=== PATIENT | male | born 1955 | race Caucasian/White ===

== ENCOUNTER 2016-10-17 20:10 | Emergency (ER) | payer OTHER ==
[~2016-10-17] VITALS: Ht 180.3 cm; Wt 80.0 kg
[2016-10-17 20:10] VITALS: TEMP 36.6; Ht 180.3 cm; Wt 80.0 kg
[2016-10-17] MEDS ORDERED: XYLOCAINE 1%/SOD BICARB 20 ML VIAL INFIL ONE (20:30)
[2016-10-17] MEDS ORDERED: CEFAZOLIN IV 2,000 MG in DEXTROSE 5% 50ML 50 ML IV STA (20:30)
[2016-10-17] MEDS ORDERED: DIPHTHERIA/TETANUS/PERTUSSIS 0.5 ML SYR/VIAL IM. ONE (20:30)
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
[2016-10-17] MEDS ORDERED: MELO15TA4 PO (21:24)
[2016-10-17] MEDS ORDERED: LISI40TA PO (21:24)
[2016-10-17] MEDS ORDERED: ALLO300T2 PO (21:24)
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
[2016-10-17] MEDS ORDERED: CEFAZOLIN SOD 1000MG/55 ML D5W IV ONE (21:53)
[2016-10-17] MEDS ORDERED: BUPIVACAINE 0.5 % 5 MG/1 ML MPF 30ML VIAL INFIL STA (22:36)
[2016-10-17] MEDS ORDERED: CEPH500C PO (22:49)
[2016-10-17] MEDS ORDERED: OXYC-57 PO (22:50)
[2016-10-17] MEDS ORDERED: PERCOCET HOME PACK PO ONE (23:00)
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
[2016-10-18 01:27] VITALS: BP 122/93; PULSE 94; O2SAT 97
== END 2016-10-18 01:29 | disposition home or self-care (01) ==
LOC: C.EDB 20:12
DX: S62.502B Fracture of unspecified phalanx of left thumb, initial encounter for open fracture (principal); S69.82XA Other specified injuries of left wrist, hand and finger(s), initial encounter; X58.XXXA Exposure to other specified factors, initial encounter; Z23 Encounter for immunization

== ENCOUNTER 2020-07-10 06:01 | Observation (INO) ==
--- NOTE | 2020-07-07 10:06 | Anesthesiology Consultation ---
Date of Service July 07, 2020 Assessment & Plan (1) Encounter for pre-operative examination: Chart Review Chart Review: Acceptable Risk for Surgery and Patient NOT seen in Pre Admission Testing Per nursing assessment- 6 beers daily Per nursing assessment 07/03/2020, patient denies any recent travel. No known Covid infection in the past 90 days. No known Covid positive contacts or Covid related symptoms. Covid test 07/05/2020 = negative. Seen by PCP 07/08/20= seen for preop clearance appt. Revised Cardiac Risk Index Score- Class 1 risk. No HERNANDEZ/SOB. No anticoagulation, insulin or signs of infection. "Cleared from primary care setting for surgery, patient optimally managed" History Surgery Operation Date: 07/10/20 07:30 Proposed Procedures p Robotic Assisted Laparoscopic Radical Retropubic Prostatectomy, Possible Open, Possible Pelvic Lymph - Armando Layne, DO s Robotic-Assisted LaparoscopicRigth Inguinal Hernia Repair, Possible Open - Cristian Nobles DO Height/Weight Height: 5 ft 8 in Weight: 72.575 kg Allergies Allergy/AdvReac Type Severity Reaction Status Date / Time aspirin AdvReac Unknown ? UNSURE Verified 07/08/20 13:42 REASON Medications Home Medications Medication Instructions Recorded Confirmed Last Taken allopurinol 300 mg tablet 300 mg PO QAM 05/21/20 07/08/20 Unknown betamethasone dipropionate 0.05 % 1 applic TOPICAL BID PRN 05/21/20 07/08/20 Unknown topical cream bicalutamide 50 mg tablet 50 mg PO DAILY 05/21/20 07/08/20 Unknown celecoxib 200 mg capsule 200 mg PO QAM 05/21/20 07/08/20 Unknown lisinopril 40 mg tablet 40 mg PO QAM 05/21/20 07/08/20 Unknown sildenafil 100 mg tablet 100 mg PO DAILY PRN 05/21/20 07/08/20 Unknown tamsulosin 0.4 mg capsule 0.4 mg PO QAM 05/21/20 07/08/20 Unknown Past Medical History Medical History (Updated 07/09/20 @ 14:29 by Terrie Bay PA-C) BPH (benign prostatic hyperplasia) Erectile dysfunction Finger amputation, 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 Person Greenwald [facility] History of ankle surgery ? SIDE History of cataract surgery RT/LEFT History of colonoscopy History of prostate biopsy History of tooth extraction Social History Smoking Status: Never smoker tobacco type: smokeless tobacco Do You Dip or Chew Tobacco: Yes (ADVISED) Hx Alcohol Use: Yes Alcohol type: beer alcohol intake frequency: 3 or more drinks per day Alcohol Intake Frequency Comment: 6 BEERS DAILY ? Hx Substance Use: No Testing Laboratory Results Laboratory Tests 07/05/20 07/05/20 10:05 10:05 WBC 5.77 Hgb 14.7 Hct 41.3 L Plt Count 162 Sodium 138 Potassium 4.7 Chloride 110 H Carbon Dioxide 25 BUN 15 Creatinine 0.96 Glucose 103 H 07/05/2020 = UA: Negative Electrocardiogram Date: 07/07/20 Findings: + NSR @ (80 bpm) Normal EKG. Chest X-Ray Date: 07/08/20 Findings: + NAD
[~2020-07-10 06:01] MED LIST: HEPARIN SOD 5,000 UNIT/0.5 ML VIAL SQ SCH; LACTATED RINGER'S 1,000 ML IV SCH; LR 15ML/HR IV SCH; ceFAZolin 2000MG 2,000 MG/15 ML SYR IV SCH
[2020-07-10] MEDS ORDERED: ONDANSETRON INJ 2 MG/ML 2 ML VIAL ONE (06:40)
[2020-07-10] MEDS ORDERED: ROCURONIUM BROMIDE 10 MG/ML 5 ML VIAL IV ONE ×6 (06:40→08:21)
[2020-07-10] MEDS ORDERED: fentaNYL citrate 100 MCG/2 ML VIAL ONE ×2 (06:40→08:22)
[2020-07-10] MEDS ORDERED: MIDAZOLAM HCL 1 MG/ML 2ML VIAL ONE (06:40)
[2020-07-10] MEDS ORDERED: LIDOCAINE HCL 2% 2 ML VIAL/AMP(20MG/ML) INFIL ONE (06:40)
[2020-07-10] MEDS ORDERED: PROPOFOL IV EMULSION 10 MG/ML 20 ML VIAL IV ONE (06:40)
[2020-07-10] MEDS ORDERED: ePHEDrine sulfate 50 MG/ML AMP IV PRN (06:51)
[2020-07-10] MEDS ORDERED: ATROPINE SULFATE 0.1 MG/ML 10ML SYR IV PRN (06:51)
[2020-07-10] MEDS ORDERED: fentaNYL citrate 100 MCG/2 ML VIAL IV PRN (06:51)
[2020-07-10] MEDS ORDERED: ONDANSETRON INJ 2 MG/ML 2 ML VIAL IV PRN ×2 (06:51→14:24)
--- NOTE | 2020-07-10 07:04 | History & Physical Bridge Note ---
Date of Service July 10, 2020 History & Physical Bridge Note I have examined the patient, reviewed the History & Physical and in the interval since the performance of the History & Physical I have noted the following changes of clinical significance: no changes noted
[2020-07-10] MEDS ORDERED: BUPIVACAINE 0.5 % 5 MG/1 ML MPF 30ML VIAL ONE (07:29)
[2020-07-10] MEDS ORDERED: NEOSTIGMINE METHYLSULFATE 5 MG/5 ML SYR ONE (09:02)
[2020-07-10] MEDS ORDERED: PHENYLEPHRINE 100MCG/ML 5ML SYR ONE (09:02)
[2020-07-10] MEDS ORDERED: GLYCOPYRROLATE 0.2 MG/ML VIAL ONE (09:02)
[2020-07-10] MEDS ORDERED: SURGICEL ABSORB HEMOSTAT 2IN X 14IN TOP ONE (09:02)
[2020-07-10] MEDS ORDERED: PHENYLEPHRINE HCL 10 MG/ML VIAL ONE (09:02)
[2020-07-10] MEDS ORDERED: DEXAMETHASONE SOD INJ 4 MG/ML VIAL ONE (10:20)
[2020-07-10] MEDS ORDERED: FLOSEAL HEMOSTATIC MATRIX 10ML TOP ONE (10:36)
--- NOTE | 2020-07-10 12:48 | Post Operative Brief Note ---
PG Immediate Post Op with CF Date of Surgery July 10, 2020 Pre & Post Diagnosis Operation Date: 07/10/20 07:30 Pre-Op Diagnosis: Prostate Cancer, Right Inguinal Hernia Post-Op Diagnosis: Prostate Cancer, Right Inguinal Hernia I identified the patient and participated in the time-out.: Yes Procedure Operation Date: 07/10/20 07:30 Actual Procedures s Robotic-Assisted Laparoscopic Right Inguinal Hernia Repair with Mesh - Cristian Nobles DO Surgeon Cristian Nobles DO Sanitation Manager Leona VENEGAS Estimated Blood Loss 5 Findings See Below Indirect inguinal hernia Specimens Specimen Description: Permanent Specimen A.) right pelvic lymph node - sent fresh B.) left pelvic lymph node - sent fresh C.) prostate Drains [place] Catheter Anesthesia Type General Complications none Disposition Disposition: Recovery Room
--- NOTE | 2020-07-10 13:13 | Operative Report ---
PG Post Operative Report Pre & Post Diagnosis Operation Date: 07/10/20 07:30 Pre-Op Diagnosis: Prostate Cancer, Right Inguinal Hernia Post-Op Diagnosis: Prostate Cancer, Right Inguinal Hernia I identified the patient and participated in the time-out.: Yes Procedure Operation Date: 07/10/20 07:30 Actual Procedures p Robotic Assisted Laparoscopic Radical Retropubic Prostatectomy, Pelvic Lymph Node Excision(Not Applicable) - Armando Layne DO s Robotic-Assisted Laparoscopic Right Inguinal Hernia Repair with Mesh - Cristian Nobles DO Surgeon Armando Layne, II, DO Car Ferrier Leona VENEGAS Estimated Blood Loss 75 Findings Consistent with Post-Op Diagnosis Right inguinal hernia. Specimens Prostate and Seminal Vesicle Left Pelvic Lymph Nodes Right Pelvic Lymph Nodes. Drains 18 Fr Lim catheter. Anesthesia Type General Complications none Disposition Disposition: Recovery Room Indications Patient with Prostate Cancer. Risk and benefits were discussed at length. Patient elected to undergo robotic assisted laparoscopic Radical Prostatectomy. Description of Procedure The patient was brought to the operative suite and placed under general endotracheal intubation anesthesia in the supine position. The patient was transferred to the dorsal lithotomy position. At this point, the patient prepped and draped in the usual sterile fashion and a timeout was completed. Preoperative antibiotics of Ancef 2 grams had been given. BASIL's and SCD's were placed on the patient's lower extremities. A catheter was placed using sterile technique. With the time out completed the patient was placed into Trendelenburg and the skin at the umbilicus was anesthetized. A small incision was made superior to the umbilicus. A Varess Needle was placed and confirmed to be in the abdominal cavity. Water drop test passed. The Abdominal cavity was insufflated to 15 mmHG. The camera port was then placed. A laparoscopic camera was placed into the port and the abdominal cavity inspected. No concerning features were noted. At this point, the skin was marked for port placement and 8mm working ports were placed. The skin was anesthetized down to fascia and an approx 1cm incision was made to place the 3 x 8mm ports. A 12mm and 5 mm acute care certified nursing assistant ports were also placed in similar fashion under direct visualization. The patient was transferred into steep Trendelenburg position and the legs lowered. The robot was positioned and docked. The camera was placed and all trocars were positioned under direct visualization. THEO Be was integral in port placement, camera utilization, and docking procedure. She remained in sterile attire and then proceeded to assist the remainder of the case. At this point, I transitioned to the robotic console. At this point, the sigmoid colon was mobilized superiorly and the pelvis assessed. Adhesions were freed to allow mobilization. The peritoneum in the midline was opened between rectum and bladder and the vas deferens and seminal vesicles exposed. These were dissected with blunt technique. The vas was clipped and cut and mobilized. Cautery was used to assist dissection avoiding the tissue posteriorly near the rectum. The tissues lateral to the seminal vesicles were clipped with a hemolock and all bleeding controlled. This was taken as inferior as possible from this position. The medial umbilical ligaments were then identified and the peritoneum directly lateral on the right followed by the left was opened. The tissues were bluntly dissected to free the bladder's lateral attachments. This was taken down to the pubic bone and exposed the endopelvic fascia bilaterally. The medial ligaments were cut and the bladder dropped. The tissues was dissected anterior to the prostate. The endopelvic fascia on each side was then opened and the lateral edges of the prostate dissected. The Dorsal venous complex of the prostate was dissected and assessed. A 2-0 suture was used to ligate the vessels. A suspension stitch was used and clipped. Electrocautery was used to cut the anterior attachments, the puboprostatic ligaments, and venous tissues. The lim was manipulated to better visual the bladder neck and dissection was taken using electrocautery. The bladder neck was opened and dissected from the prostate. The UO were identified and dissection taken in a direction to avoid each side. The vas stump and seminal vesicles were exposed and used to assist in traction to dissect. The prostatic pedicles were better exposed. The posterior prostate was dissected. An attempt was made to limit cautery and utilize cold dissection of the lateral posterior prostate to attempt preservation of the neurovascular bundle bilaterally. Hemolock clips were utilized to clip the prostatic pedicle bilaterally. The dissection was taken to the apex of the prostate. The anterior prostate was released and the urethra exposed. Cold cutting was used to open the anterior portion and expose the catheter. This was removed and the urethra incised. The prostate was further freed and grasped and removed from the field. The entire dissection bed was inspected.Hemostatic agent was placed in the region. No areas of injury or bleeding was noted. Care was taken to examine the perirectal tissues. A probe was placed and no injuries or other issues were observed. A vicryl 2-0 suture was used as a figure of 8 stitch to oversew the area. Another 2-0 vicyrl was used at the dorsal veins for an additional oversew. The 2-0 Vicryl was then used to bring the base of the bladder to the periurethral tissue. The right and left pelvic lymph tissue was identified in relation to the iliac vessels. Distal dissection was taken to the Node of José Miguel. Inferiorly the obturator vessels and nerve were identified. Lymphatic tissue within the surround fat tissue was dissected. This packet of tissues were sent for patho logic analysis and lymph node assessment. This was done for each separate side. Hemostatic agent was placed on the exposed vessels. At this point, I transferred care to Dr. Nobles with General Surgery. Please see his dictation for the full report. With the mesh in place, the care was transferred back to myself. The bladder neck and urethra were then approximated with a running barbed suture starting at the 5 o'clock position and moving to the 12 o'clock on each side. This was tied at the anterior portion. A leak test was completed without any evidence of issues. The entire dissection space was inspected one final time. No bleeding or injuries or areas of concern were noted. No tumor or other concerning features were noted. I once again transferred care to Dr. Nobles to complete the closure of the peritoneum over the mesh. Again, see his note for full report. Once completed the care was transferred back to myself. At this point, the robot was undocked and moved away from the patient. The patient was taken out of Trendelenberg. The port sites were all assessed laparoscopically. The endoscopic bag was moved into the midline port. The 12mm port site was closed with the Henrik Edgar device. The other ports were assessed and no issues observed. The umbilical incision was opened further exposing fascia which was then opened in order to removed the prostate in the bag. The prostate was removed. A running PDS suture was used to close fascia. The skin at each site was closed with a stapler. The area was cleaned and bandages placed on each incision. The patient was cleaned and bandaged, aroused from anesthesia, and transferred to the pacu in stable condition having tolerated the procedure well with no complications. I was present and participated in all aspects of the procedure. Vimal VENEGAS was critical in the portions as mentioned above. Will plan to observe postoperatively and monitor. Lim to be remain in place until followup. I attest to the content of the Intraoperative Record and any orders documented therein. Any exceptions are noted below.
[2020-07-10] MEDS ORDERED: fentaNYL citrate 100 MCG/2 ML VIAL IV ONE (13:37)
--- NOTE | 2020-07-10 13:38 | Operative Report ---
PG Post Operative Report Pre & Post Diagnosis Operation Date: 07/10/20 07:30 Pre-Op Diagnosis: Prostate Cancer, Right Inguinal Hernia Post-Op Diagnosis: Prostate Cancer, Right Inguinal Hernia I identified the patient and participated in the time-out.: Yes Procedure Operation Date: 07/10/20 07:30 Actual Procedures s Robotic-Assisted Laparoscopic Right Inguinal Hernia Repair with Mesh - Cristian Nobles DO Surgeon Cristian Nobles DO Hospital Account Manager Leona VENEGAS Estimated Blood Loss 5 Findings Consistent with Post-Op Diagnosis Indirect inguinal hernia Specimens NOne Drains None Anesthesia Type General Complications none Disposition Disposition: Recovery Room Indications 64 yo male undergoing robotic prostatectomy with symptomatic right inguinal hernia Description of Procedure I arrived in the operating room with the patient already under general anesthesia and peritoneal flap was already created by Dr. Lyane for his portion of the procedure. Medial dissection was carried down until the pubic symphysis and Lloyd's ligament were visible and cleared of any tissue. This was then taken laterally to the hernia and spermatic cord contents. I then created the peritoneal fold laterally clearing any tissue medially to the hernia and spermatic cord contents. The hernia sac was then dissected free of the spermatic cord contents taking care not to injure any spermatic cord structures. Once the sac was fully reduced, a 10cm x 15cm ProGrip mesh was placed in the pocket and unfolded so t hat it reached the pubic tubercle medially with at least 2cm of overlap and so that the entire mesh covered the myopectineal orifice. Once the mesh was in place, the peritoneal flap was closed using a running 2-0 absorbable barbed suture. The peritoneal flap was inspected for any rents. All rents was found and closed using a single 2-0 Vicryl suture. At this point the case was turned back over to Dr. Layne for closure of the fascia and incisions. The physican's photographer assistant was present and scrubbed for the entirety of the case. He was critical in positioning the patient, prepping and draping, retraction and exposure, driving the laparoscope, closure of the incisions, and placement of the dressings. I attest to the content of the Intraoperative Record and any orders documented therein. Any exceptions are noted below.
--- NOTE | 2020-07-10 14:07 | Anesthesiology Progress Note ---
Date of Service July 10, 2020 Anesthesia Post Procedure Vital Signs Vital Signs: Temp Pulse Pulse Resp BP Pulse Ox 07/10/20 14:00 97.9 F 104 H 18 104/66 99 07/10/20 13:50 98 H 16 106/66 98 07/10/20 13:45 98 H 16 103/61 99 07/10/20 13:40 99 H 18 91/60 L 99 07/10/20 13:30 102 H 18 84/58 L 100 07/10/20 13:20 102 H 20 99/68 L 100 07/10/20 13:15 97.7 F 106 H 22 103/69 99 07/10/20 06:25 98.1 F 113 H 18 110/81 98 Pain Intensity Abdomen: Pain Intensity: 6 Transfer of Care Handoff Completed per policy Notes Mental Status: alert / awake / arousable and participated in evaluation Patient Amnestic to Procedure: Yes Nausea / Vomiting: adequately controlled Pain: adequately controlled Airway Patency, RR, SpO2: stable & adequate BP & HR: stable & adequate Hydration State: stable & adequate Anesthetic Complications: no major complications apparent and Pt Satisfied with anesthetic care
[2020-07-10] MEDS ORDERED: MoRPHine SULFATE 2 MG/ML CARP IV PRN (14:24)
[2020-07-10] MEDS ORDERED: MoRPHine SULFATE 4 MG/ML 1 ML CARP\\VIAL IV PRN (14:24)
[2020-07-10] MEDS ORDERED: oxyCODONE HCL IR 5 MG TAB (IMMEDIATE RELEASE) PO PRN (14:24)
[2020-07-10 14:59] LABS: Basophils # (auto) 0.01 K/uL (0-0.2); Basophils % (auto) 0.1 %; Hematocrit (blood only) 34.4 % (42-52); Hemoglobin 12.1 g/dL (14.0-18.0); Immature Granulocytes # (auto) 0.03 K/uL (0.00-0.02); Immature Granulocytes % (auto) 0.2 %; Lymphocytes # (auto) 1.13 K/uL (1.2-3.4); Lymphocytes % (auto) 8.9 %; Mean Corpuscular Hemoglobin 31.5 pg (25-34); Mean Corpuscular Volume 89.6 fL (80-100); Mean Platelet Volume 8.6 fL (7.4-10.4); Monocytes # (auto) 0.29 K/uL (0.11-0.59); Monocytes % (auto) 2.3 %; Neutrophils # (auto) 11.27 K/uL (1.4-6.5); Neutrophils % (auto) 88.5 %; Platelet Count 164 K/uL (130-400); RDW Coefficient of Variation 12.7 % (11.5-14.5); RDW Standard Deviation 41.9 fL (36.4-46.3); Red Blood Count 3.84 M/uL (4.7-6.1); White Blood Count 12.73 K/uL (4.8-10.8)
[2020-07-10 15:00] LABS: Mean Corpuscular Hgb Conc 35.2 g/dL (32-36)
[2020-07-10] MEDS: LACTATED RINGER'S 1,000 ML IV SCH ×2 (15:09→22:42)
[2020-07-10] MEDS: ACETAMINOPHEN 325 MG TAB PO PRN (15:12)
[2020-07-10] MEDS: oxyCODONE HCL IR 5 MG TAB (IMMEDIATE RELEASE) PO PRN ×2 (15:12→20:50)
[2020-07-10 15:20] LABS: BUN Creatinine Ratio 11.9 (10-20); Calcium 7.8 mg/dl (8.5-10.1); Creatinine Clr Calc Pharmacy 68.6 ml/min; Est GFR (African American) 75.4; Est GFR (Non-African American) 65.1; Potassium 4.6 mmol/L (3.5-5.1)
[2020-07-10] MEDS: ceFAZolin 2000MG 2,000 MG/15 ML SYR IV SCH ×2 (16:23→23:32)
[2020-07-10] MEDS: HEPARIN SOD 5,000 UNIT/0.5 ML VIAL SQ SCH (20:51)
[2020-07-11] MEDS: ACETAMINOPHEN 325 MG TAB PO PRN ×2 (02:10→09:00)
[2020-07-11] MEDS ORDERED: SODIUM CHLORIDE 0.9% 1000ML 250 ML IV ONE (05:33)
[2020-07-11 06:22] LABS: Basophils # (auto) 0.01 K/uL (0-0.2); Basophils % (auto) 0.1 %; Eosinophils # (auto) 0.01 K/uL (0-0.5); Eosinophils % (auto) 0.1 %; Hemoglobin 10.8 g/dL (14.0-18.0); Immature Granulocytes # (auto) 0.03 K/uL (0.00-0.02); Immature Granulocytes % (auto) 0.2 %; Lymphocytes # (auto) 1.33 K/uL (1.2-3.4); Lymphocytes % (auto) 9.9 %; Mean Corpuscular Hemoglobin 31.6 pg (25-34); Mean Corpuscular Volume 90.6 fL (80-100); Mean Platelet Volume 8.9 fL (7.4-10.4); Monocytes # (auto) 1.45 K/uL (0.11-0.59); Monocytes % (auto) 10.8 %; Neutrophils # (auto) 10.58 K/uL (1.4-6.5); Neutrophils % (auto) 78.9 %; Platelet Count 161 K/uL (130-400); RDW Coefficient of Variation 12.7 % (11.5-14.5); RDW Standard Deviation 42.1 fL (36.4-46.3); Red Blood Count 3.42 M/uL (4.7-6.1); White Blood Count 13.41 K/uL (4.8-10.8)
[2020-07-11 06:30] LABS: Mean Corpuscular Hgb Conc 34.8 g/dL (32-36)
[2020-07-11 07:05] LABS: BUN Creatinine Ratio 15.9 (10-20); Calcium 7.8 mg/dl (8.5-10.1); Creatinine Clr Calc Pharmacy 100.7 ml/min; Est GFR (African American) 110.4; Est GFR (Non-African American) 95.3; Potassium 4.4 mmol/L (3.5-5.1)
[2020-07-11] MEDS: HEPARIN SOD 5,000 UNIT/0.5 ML VIAL SQ SCH (07:40)
[2020-07-11] MEDS: LACTATED RINGER'S 1,000 ML IV SCH (08:55)
[2020-07-11] MEDS ORDERED: TAMSULOSIN HCL 0.4 MG CAP PO SCH (09:00)
[2020-07-11] MEDS ORDERED: lisinopril 40 MG TAB PO SCH (09:00)
[2020-07-11] MEDS ORDERED: allopurinoL 300 MG TAB PO SCH (09:00)
--- NOTE | 2020-07-11 10:29 | Urology Progress Note ---
Date of Service July 11, 2020 Assessment & Plan (1) Prostate cancer: Patient postop day 1 status post robot-assisted laparoscopic prostatectomy with bilateral pelvic lymph node dissection. Also concurrently had a robotic assisted laparoscopic right hernia repair with general surgery. Patient is healing well. He is up ambulating. He is tolerating diet. Is interested in advancing diet later today. No major pain episodes. Has been doing overall very well. Is tolerating liquids. Had some minor hypotension in the morning likely due to hydration issues. Has been improved since then. Discussed options. We will plan to reassess later today with plans likely to discharge sometime in the early afternoon. Patient is not having bowel function yet and did discuss that this may take a few days. Patient will need follow-up in approximately 14 days for catheter removal in office. We will plan to call with pathology report once available. No significant nausea or vomiting or other major issues. No fevers or chills. Can discontinue antibiotics at this point unless deemed necessary from the general surgery standpoint Admission and Anticipated Discharge Date Admission Date: July 10, 2020 Subjective Postop from urologic surgery. Patient has been tolerating well, but is having some pain and discomfort. Incisions have been mild sore. Having some abdominal distension/gas pains. Has tolerated catheter. Has not had severe pain or uncontrollable pain. Patient has been ambulating. Has not had bowel movement or major change. No new nausea or vomiting. Had tolerated anesthesia without major problems Tolerated liquid diet postoperatively. Review of Systems Review of Systems: All systems reviewed & are unremarkable except as noted in HPI & below Physical Exam Physical Exam: General: Alert in no acute distress. HEENT: Normocephalic Atraumatic. Inspection normal. Cranial Nerves 2-12 Grossly intact. Normal inspection of face. Normal inspection of neck. Psychologic: Normal affect. Respiratory: Nonlabored. No use of accessory muscles. No tachypnea or dyspnea. Cardiovascular: No tachycardia Skin: Clarence and Dry. No rashes or visible lesions. Extremities/Lymphatics: No edema Abdomen: Appropriately tender. Mild distended. No rebound or guarding. Wound: Clean, dry, covered. Results & Data ([facility]) Vital Signs (Past 12 Hours) Vital Signs Temp Pulse Pulse Resp BP Pulse Ox 07/11/20 07:21 36.8 C 86 16 107/67 95 07/11/20 06:29 75 97/54 L 07/11/20 05:15 81 97/59 L 07/11/20 02:06 36.8 C 73 15 95/59 L 94 PG Care Time/CCT Total # of Minutes Spent Total Time Spent with Patient: Total time spent is greater than 50% in coordination of care (as documented) at patient's floor/unit and/or counseling patient: Coding Level of Care Code 02110 Subseq Hosp Care Lvl 2 Diagnoses Prostate cancer C61
--- NOTE | 2020-07-11 22:27 | Discharge Summary ---
Date of Service July 11, 2020 Admission HPI Per Admitting Provider Patient admitted status post Robotic Assisted Laparoscopic Radical Retropubic Prostatectomy, Pelvic Lymph Node Excision with Dr. Layne and Robotic-Assisted Laparoscopic Right Inguinal Hernia Repair with Mesh with Dr. Nobles. Admission Exam Per Admitting Provider General: Alert and oriented x 3 in no acute distress. Patient is well nourished and well kept. HEENT: Normocephalic Atraumatic. Inspection normal. Cranial Nerves 2-12 Grossly intact. Nares are clear. Neck is supple. Normal inspection of face. Normal inspection of neck. Neurologic: No deficits on inspection. Baseline for motor function and sensory. Psychologic: Normal affect. Respiratory: Nonlabored. No use of accessory muscles. No tachypnea or dyspnea. Cardiovascular: No tachycardia Skin: Hutton and Dry. No rashes or visible lesions. Extremities: Moving without issues. No motor deficits on inspection Abdomen: Soft Non-distended. No acites. No rebound or guarding. Principal Diagnosis Prostate Cancer; Right Inguinal Hernia Discharge Exam Constitutional well developed and well nourished; no acute distress and not ill appearing Respiratory normal respiratory effort and able to speak in complete sentences Cardiovascular Extremities: no calf tenderness Gastrointestinal (Abdomen) Inspection/Auscultation: abdomen not distended Percussion/Palpation: abdomen soft incisions appropriate Skin no rashes, warm and dry Neurologic moves all extremities and awake Psychiatric A+Ox3, euthymic affect Genitourinary Lim catheter intact Discharge Data Allergies Allergy/AdvReac Type Severity Reaction Status Date / Time aspirin AdvReac Unknown ? UNSURE Verified 07/10/20 06:22 REASON Procedures Performed Operation Date: 07/10/20 07:30 Actual Procedures p Robotic Assisted Laparoscopic Radical Retropubic Prostatectomy, Pelvic Lymph Node Excision(Not Applicable) - Armando Layne DO s Robotic-Assisted Laparoscopic Right Inguinal Hernia Repair with Mesh - Cristian Nobles DO Hospital Course (1) Prostate cancer: (2) Right inguinal hernia: Patient admitted status post Robotic Assisted Laparoscopic Radical Retropubic Prostatectomy, Pelvic Lymph Node Excision with Dr. Layne and Robotic-Assisted Laparoscopic Right Inguinal Hernia Repair with Mesh with Dr. Nobles. No complications post procedure. He was seen POD#1, feeling well, clinically progressing. Vital signs and post-op labs appropriate and as expected. Pain controlled, tolerating advanced diet, ambulating without dizziness. Discharged home in stable condition POD#1, home with lim catheter. Total Time Total Time Spent Total Time Spent (In Minutes): 15 Total Time Includes: Examination of the Patient, Discharge Planning, Medication Reconciliation, Communication With Other Providers and Other Discharge Plan Discharge Items Patient Disposition: Home - Self-Care Reason For Visit: Prostate Cancer Discharge Diagnosis: Prostate Cancer Activity: Per Instructions section Lifting: No more than 10 pounds Bathing Comment: No tub baths or soaks. Ok to shower 1 day after discharge. Sexual Activity: Wait until after follow-up appointment Exercise/Sports: Wait until after follow-up appointment Driving/Machine Use: Do not drive while taking prescription pain medication. Non-emergency contact: Surgeon and Urologist Call non-emergency contact if: your pain is not controlled, you have a fever, your temperature is above 101, your wound has increased redness, your wound has increased drainage and your wound pain has increased Follow-up/Referrals: Cristian Nobles DO [Physician] - (Office will call patient to schedule appointment within 2 weeks.) Ruslan Hardy DO [Primary Care Provider] - Diet: Regular Addtl Attending Provider Instructions: Please take all medications as prescribed and keep all follow-ups as scheduled. Please call our office at [phone] with any questions, concerns or need to reschedule appointments for any reason. We are happy to assist you We have sent an antibiotic to your pharmacy of choice. Please begin antibiotic as prescribed the day BEFORE your scheduled voiding trial at [facility]. Please continue antibiotic every 12 hours through the day AFTER your voiding trial. Activity: We recommend having someone with you for the first few days after surgery to help care for you. For the first 2 weeks after surgery, we would like you to get up and walk ar ound your house. However, we recommend limit physical activity that would increase your heart rate. This will allow your body to rest and heal. Take naps if you feel tired. Don't lift anything heavier than 10 pounds, mow the law or ride a bicycle until your follow-up appointment. Please avoid long car rides. Home Care: Unless directed otherwise, drink 6 to 8 glasses of water a day (enough to keep your urine light colored). This will also help keep a healthy flow of urine. We recommend using a stool softener for the first two weeks to avoid constipation. Lim Catheter or Suprapubic Catheter care: Keep the catheter well secured with either a leg back or leg strap with large bag. Empty your bag when it's about half full. You may notice some blood in the bag. This is normal after surgery and while the catheter is in place. Use mild soap (such as Dove or Dial) and water to wash the catheter and the head of your penis daily, or more frequently if needed. Return to your normal diet, we encourage good protein intake to promote healing. You may shower as normal. Please avoid tub baths or soaking until catheter removed and incisions well healed. Wearing sweat pants while you have the catheter is recommended, they will be more comfortable. Follow-up Your follow up appointments for having your catheter removed, and follow up with your physician should already be scheduled. If you have any questions regarding this, please contact our office. Your final pathology report will be discussed at your physician follow-up appointment. Call [facility] at [phone] right away if you have any of the following: Chest pain or trouble breathing (call [phone] or go to the hospital) Fever of 101F or higher, uncontrolled vomiting Heavy bleeding, clots, or bright red blood from the catheter Catheter that falls out or stops draining Foul-smelling discharge from your catheter Redness, swelling, warmth, or increased pain at your incision site Drainage, pus, or bleeding from your incision Pending Studies at Discharge: Yes Stand-Alone Forms: My [facility] [employer], Smoking Cessation Medications and DC Order Prescriptions: New ciprofloxacin HCl 500 mg tablet 500 mg PO BID 3 Days Qty: 6 RF: 0 docusate sodium [Colace] 100 mg capsule 100 mg PO BID Qty: 60 RF: 0 oxycodone-acetaminophen [Percocet] 5-325 mg tablet 1 tab PO Q8H PRN (Reason: pain) Qty: 14 RF: 0 Continued tamsulosin [Flomax] 0.4 mg capsule 0.4 mg PO QAM RF: 0 sildenafil [Viagra] 100 mg tablet 100 mg PO DAILY PRN (Reason: .) RF: 0 betamethasone dipropionate 0.05 % cream 1 applic topical BID PRN (Reason: .) RF: 0 celecoxib 200 mg capsule 200 mg PO QAM RF: 0 lisinopril 40 mg tablet 40 mg PO QAM RF: 0 allopurinol 300 mg tablet 300 mg PO QAM RF: 0 Discharge Orders: Discharge Order (Routine); Ordered 07/11/20 Ordered By: Leona Celis Admission Data Admit Date/Time: 07/10/20 13:21 Attending Provider: Armando Layne Admit Provider: Armando Layne Primary Care Provider: Ruslan Hardy Other Interventions: Discharge Summary Assessment (RN) Last Done: 07/11/20 14:12 Coding Level of Care Code D/C Day Management <30 mins Diagnoses Prostate cancer C61 Right inguinal hernia K40.90
== END 2020-07-11 15:10 | disposition home or self-care (01) ==
LOC: ASU 06:01 → 3W 13:21 → INTOOBSV 13:21